=== PATIENT | male | born 1975 | race Caucasian/White ===

== ENCOUNTER 2017-10-10 17:30 | Emergency (ER) | payer MEDICAID ==
[~2017-10-10] VITALS: Ht 180.3 cm; Wt 147.0 kg
[2017-10-10 17:38] VITALS: BP 128/83
[2017-10-10 18:18] LABS: RAPID INFLUENZA A Negative (Negative); RAPID INFLUENZA B Negative (Negative)
== END 2017-10-10 18:46 | disposition home or self-care (01) ==
LOC: ED 18:30
DX: J02.8 Acute pharyngitis due to other specified organisms (principal); J31.0 Chronic rhinitis; F17.200 Nicotine dependence, unspecified, uncomplicated; Z88.0 Allergy status to penicillin
CPT/HCPCS: 87400; 99284